=== PATIENT | female | born 1965 | race Caucasian/White ===

== ENCOUNTER → 2016-06-18 | Outpatient (CLI) | payer BC ==
[~2016-06-18] MED LIST: ALPR0.25 PO; CLON0.5T3 PO; FAMO20TA11 PO; IMD/2 PO; LACTASE PO; RANI1TAB75 PO
== END | disposition home or self-care (01) ==
LOC: C.PAPS 10:13
PROVIDERS: ATTEND Obstetrics & Gynecology
DX: Z01.419 Encounter for gynecological examination (general) (routine) without abnormal findings (principal); R87.610 Atypical squamous cells of undetermined significance on cytologic smear of cervix (ASC-US)

== ENCOUNTER → 2016-10-24 | Outpatient (CLI) | payer BC ==
--- NOTE | 2016-10-24 16:09 | MAMMOGRAPHY REPORT ---
BILATERAL DIGITAL SCREENING MAMMOGRAM TOMOSYNTHESIS WITH CAD: 10/24/2016 CLINICAL HISTORY: Routine screening. TECHNIQUE: Breast tomosynthesis in addition to standard 2D mammography was performed. Current study was also evaluated with a Computer Aided Detection (CAD) system. COMPARISON: Comparison is made to exams dated: 08/22/2015 mammogram, 08/16/2014 mammogram, 08/11/2012 m ammogram, 08/12/2013 mammogram, 08/07/2011 mammogram, and 01/23/2010 mammogram - [facility] enter. BREAST COMPOSITION: There are scattered areas of fibroglandular density in both breasts. FINDINGS: No suspicious masses, calcifications, or areas of architectural distortion are noted in ei ther breast. There has been no significant interval change compared to prior exams. Scattered bilater al benign-appearing calcifications are not significantly changed. Benign intramammary lymph nodes in bilateral upper outer quadrants are stable. IMPRESSION: ACR BI-RADS CATEGORY 2: BENIGN There is no mammographic evidence of malignancy. A 1 year screening mammogram is recommended. The pa tient will receive written notification of the results. Approximately 10% of breast cancers are not detected with mammography. A negative mammographic report should not delay biopsy if a clinically suggestive mass is present. Gloria Tijerina M.D. ah/:10/24/2016 13:40:46 Neon Tube Pumper: Davy STEVENS(Jose)(M), [facility] letter sent: Normal 1/2 BI-RADS Code: ACR BI-RADS Category 2: Benign
== END | disposition home or self-care (01) ==
LOC: C.MAMM 09:27
PROVIDERS: ATTEND Obstetrics & Gynecology
DX: Z12.31 Encounter for screening mammogram for malignant neoplasm of breast (principal)

== ENCOUNTER → 2016-11-14 | Outpatient (CLI) | payer BC ==
[2016-11-14 13:30] LABS: ALB/GLOB RATIO 1.3 (0.9-2); ALT/SGPT 19 U/L (12-78); AST/SGOT 13 U/L (15-37); BLOOD UREA NITROGEN 15 mg/dl (7-18); BUN/CREATININE RATIO 16.7 (10-20); CARBON DIOXIDE 26 mmol/L (21-32); CHLORIDE 107 mmol/L (98-107); CREATININE 0.92 mg/dl (0.60-1.20); GLUCOSE 95 mg/dl (70-99); POTASSIUM 4.1 mmol/L (3.5-5.1); SODIUM 141 mmol/L (136-145)
[2016-11-14 13:42] LABS: ALKALINE PHOSPHATASE 61 U/L (45-117); CHOLESTEROL 213 mg/dl (0-200); HDL CHOLESTEROL 43 mg/dl; LDL CHOLESTEROL CALCULATED 135 mg/dl; TRIGLYCERIDES 174 mg/dl (0-150); VERY LOW DENSITY LIPOPROT CALC 35 mg/dl
== END | disposition home or self-care (01) ==
LOC: C.LABPVFM 09:55
PROVIDERS: ATTEND Nurse Practitioner
DX: Z13.29 Encounter for screening for other suspected endocrine disorder (principal); Z13.220 Encounter for screening for lipoid disorders; R03.0 Elevated blood-pressure reading, without diagnosis of hypertension

== ENCOUNTER → 2016-12-18 | Day surgery (SDC) | payer BC ==
[2016-12-06 15:48] VITALS: Ht 147.3 cm; Wt 46.4 kg
[~2016-12-18] VITALS: Ht 147.3 cm; Wt 46.4 kg
[~2016-12-18] MED LIST changes: -IMD/2 PO; -LACTASE PO; +LIDOCAINE HCL 2% 2 ML VIAL (20MG/ML) ONE; +PROPOFOL IV EMULSION 10 MG/ML 20 ML VIAL IV ONE; -RANI1TAB75 PO; +SODIUM CHLORIDE 0.9% 500ML 500 ML IV ONE
--- NOTE | 2016-12-18 11:58 | Endo History and Physical ---
History & Physical Date of Service: Dec 18, 2016. Chief Complaint: Reflux Referring Physician: Purvi Suazo History of Present Illness 51 yo CF who presents for EGD secondary to GERD Past Surgical History Hx Cardiac Surgery: No Hx Internal Defibrillator: No Hx Pacemaker: No Hx Abdominal Surgery: Yes (APPY, JESSICA, , TUBAL LIGATION/REVERSAL) Hx of Implantable Prosthesis: No Hx Post-Op Nausea and Vomiting: Yes Hx Cancer Surgery: No Hx Thoracic Surgery: No Hx Orthopedic: Yes (LT CTR, RT HAND SURGERY X2) Hx Urinary Tract Surgery: No Family History None Social History Smoking Status: Never Smoker Hx Substance Use: No Hx Alcohol Use: No Allergies Coded Allergies: Formaldehyde (Verified Allergy, Intermediate, RESP DISTRESS,NAUSEA, ) CI Pigment Blue 63 (Verified Allergy, Unknown, GI UPSET, 12/06/16) Dexlansoprazole (Verified Allergy, Unknown, GI UPSET, 12/06/16) Pantoprazole (Verified Allergy, Unknown, STOMACH PAIN, 12/06/16) Rabeprazole (Verified Allergy, Unknown, GI UPSET, 12/06/16) Sorbitan (Verified Allergy, Unknown, GI UPSET, 12/06/16) Uncoded Allergies: DEMEROL (Adverse Reaction, Unknown, GI upset,nausea and vomiting., 03/24/11 ) Current Medications Reported Home Medications Medications Dose Route/Sig Max Daily Dose Days Date Category Pepcid (Famotidine) 20 Mg Tab 20 Mg PO BID 12/06/16 Reported Klonopin (Clonazepam) 0.5 Mg Tab 0.5-1 Tab PO HS PRN 12/07/15 Reported Xanax (Alprazolam) 0.25 Mg Tab 0.5 Tab PO DAILY PRN 12/07/15 Reported Vital Signs Weight (Kilograms): 46.36 Height (Feet): 4 Height (Inches): 10 Date Time Temp Pulse Resp B/P (MAP) Pulse Ox O2 Delivery O2 Flow Rate FiO2 12/18/16 11:27 36.6 95 20 154/105 (121) 100 Room Air Physical Exam General Appearance: WD/WN, no apparent distress Respiratory/Chest: Auscultation: breath sounds normal Cardiovascular: Heart Auscultation: RRR Abdomen: Bowel Sounds: normal Inspection & Palpation: soft, non-distended, no tenderness, guarding & rebound Assessment and Plan Assessment: 51 yo CF who presents for EGD secondary to GERD Plan: Proceed with EGD.
--- NOTE | 2016-12-18 12:16 | Discharge Instructions ---
Endoscopy Patient Instructions Date / Procedure(s) Performed Dec 18, 2016. EGD Allergy Information Coded Allergies: Formaldehyde (Verified Allergy, Intermediate, RESP DISTRESS,NAUSEA, ) CI Pigment Blue 63 (Verified Allergy, Unknown, GI UPSET, 12/06/16) Dexlansoprazole (Verified Allergy, Unknown, GI UPSET, 12/06/16) Pantoprazole (Verified Allergy, Unknown, STOMACH PAIN, 12/06/16) Rabeprazole (Verified Allergy, Unknown, GI UPSET, 12/06/16) Sorbitan (Verified Allergy, Unknown, GI UPSET, 12/06/16) Uncoded Allergies: DEMEROL (Adverse Reaction, Unknown, GI upset,nausea and vomiting., 03/24/11 ) Discharge Date / Findings Dec 18, 2016. Gastritis s/p biopsies Medication Instructions OK to resume all medications today as prescribed Reported Home Medications Medications Dose Route/Sig Max Daily Dose Days Date Category Pepcid (Famotidine) 20 Mg Tab 20 Mg PO BID 12/06/16 Reported Klonopin (Clonazepam) 0.5 Mg Tab 0.5-1 Tab PO HS PRN 12/07/15 Reported Xanax (Alprazolam) 0.25 Mg Tab 0.5 Tab PO DAILY PRN 12/07/15 Reported Provider Instructions Activity Restrictions - No exercising or heavy lifting for 24 hours. - Do not drink alcohol the day of the procedure. - Do not drive a car or operate machinery until the day after the procedure. - Do not make any important decisions or sign important papers in 24 hours after the procedure. Following Day: - Return to full activity which may include returning to work/school. Diet Start your diet with liquids and light foods (jello, soup, juice, toast). Then eat your usual diet if not nauseated. Treatment For Common After Affects For mild abdominal pain, bloating, or excessive gas: - Rest - Eat lightly - Lie on right side Follow-Up Information Follow-up with Purvi Suazo as scheduled Anesthesia Information What You Should Know You have had a procedure that required some medicine to reduce anxiety and discomfort. This treatment is called moderate sedation. After receiving the treatment, you may be sleepy, but you will be able to breathe on your own. The effects of the treatment may last for several hours. Follow these instructions along with Activity/Diet recommendations noted above: * Do NOT do anything where dizziness or clumsiness would be dangerous. * Rest quietly at home today, then you can be up and about tomorrow. * Have a responsible person stay with you the rest of today. * You may have had an I.V. today. If so, you may take the dressing off later today. Recommendations Call your doctor if: * Trouble breathing * Continuous vomiting for more than 24 hours * Temperature above 101 degrees * Severe abdominal pain or bloating * Pain not relieved by pain medicine ordered * There is increased drainage or redness from any incision * A large amount of rectal bleeding greater than 2-3 tablespoons. (If you had a polyp/s removed or have hemorrhoids, a small amount of blood - from the rectum is to be expected.) * You have any unanswered questions or concerns. IN THE EVENT OF A SERIOUS EMERGENCY, GO TO THE NEAREST EMERGENCY ROOM Your discharge instructions were prepared by provider Camron Ye. Patient Instructions Signature Page Santos Turpin Patient (or Guardian) Signature/Date: I have read and understand the instructions given to me by my caregivers. Caregiver/RN/Doctor Signature/Date: The above-named patient and/or guardian has received patient instructions on this date. + Original Patient Signature Page (only) stays with chart. Please make copy for patient.
--- NOTE | 2016-12-18 12:45 | Anesthesiology Progress Note ---
Anesthesia Post Op Note Date & Time Dec 18, 2016 at 12:45 Vital Signs Pain Intensity: 0 Vital Signs Past 12 Hours Date Time Temp Pulse Resp B/P (MAP) Pulse Ox O2 Delivery O2 Flow Rate FiO2 12/18/16 12:16 82 16 139/92 (108) 100 Room Air 12/18/16 11:27 36.6 95 20 154/105 (121) 100 Room Air Notes Mental Status: alert / awake / arousable, participated in evaluation Pt Amnestic to Procedure: Yes Nausea / Vomiting: adequately controlled Pain: adequately controlled Airway Patency, RR, SpO2: stable & adequate BP & HR: stable & adequate Hydration State: stable & adequate Anesthetic Complications: no major complications apparent
[2016-12-18 12:47] VITALS: BP 154/92; PULSE 82; O2SAT 99
--- NOTE | 2016-12-19 00:14 | GI REPORT ---
Procedure Date: 12/18/2016 12:09 PM Procedure: Upper GI endoscopy Indications: Follow-up of gastro-esophageal reflux disease Medicines: Monitored Anesthesia Care Complications: No immediate complications. Estimated Blood Loss: Estimated blood loss: none. Procedure: Pre-Anesthesia Assessment: - Prior to the procedure, a History and Physical was performed, and patient medications and allergies were reviewed. The patient's tolerance of previous anesthesia was also reviewed. The risks and benefits of the procedure and the sedation options and risks were discussed with the patient. All questions were answered, and informed consent was obtained. Prior Anticoagulants: The patient has taken no previous anticoagulant or antiplatelet agents. ASA Grade Assessment: II - A patient with mild systemic disease. After reviewing the risks and benefits, the patient was deemed in satisfactory condition to undergo the procedure. After obtaining informed consent, the endoscope was passed under direct vision. Throughout the procedure, the patient's blood pressure, pulse, and oxygen saturations were monitored continuously. The scope was introduced through the mouth, and advanced to the second part of duodenum. The upper GI endoscopy was accomplished without difficulty. The patient tolerated the procedure well. Findings: The esophagus was normal. Localized mild inflammation was found in the gastric antrum. Biopsies were taken with a cold forceps for histology. The examined duodenum was normal. Impression: - Normal esophagus. - Gastritis. Biopsied. - Normal examined duodenum. Recommendation: - Resume previous diet. - Continue present medications. - Await pathology results. - Return to primary care physician as previously scheduled. Camron Ye, 12/18/2016 12:18:41 PM This report has been signed electronically. Note Initiated On: 12/18/2016 12:09 PM I attest to the content of the Intraoperative Record and orders documented therein, exceptions below
== END | disposition home or self-care (01) ==
LOC: C.GI 10:58
PROVIDERS: ATTEND Internal Medicine
DX: K21.9 Gastro-esophageal reflux disease without esophagitis (principal); K29.70 Gastritis, unspecified, without bleeding

== ENCOUNTER → 2017-07-05 | Outpatient (CLI) | payer OTHER ==
[~2017-07-05] MED LIST changes: -LIDOCAINE HCL 2% 2 ML VIAL (20MG/ML) ONE; -PROPOFOL IV EMULSION 10 MG/ML 20 ML VIAL IV ONE; -SODIUM CHLORIDE 0.9% 500ML 500 ML IV ONE
[2017-07-05 13:49] LABS: BLOOD UREA NITROGEN 26 mg/dl (7-18); CALCIUM 8.9 mg/dl (8.5-10.1); CARBON DIOXIDE 25 mmol/L (21-32); CHOLESTEROL 188 mg/dl (0-200); CREATININE 0.82 mg/dl (0.60-1.20); GLUCOSE 95 mg/dl (70-99); POTASSIUM 4.1 mmol/L (3.5-5.1); SODIUM 137 mmol/L (136-145)
[2017-07-05 13:59] LABS: LDL CHOLESTEROL CALCULATED 131 mg/dl
== END | disposition home or self-care (01) ==
LOC: C.LABPVFM 08:38
PROVIDERS: ATTEND Nurse Practitioner
DX: Z13.220 Encounter for screening for lipoid disorders (principal); E04.2 Nontoxic multinodular goiter; R03.0 Elevated blood-pressure reading, without diagnosis of hypertension; R53.83 Other fatigue

== ENCOUNTER → 2017-07-08 | Outpatient (CLI) | payer OTHER ==
--- NOTE | 2017-07-08 11:22 | DIAGNOSTIC IMAGING REPORT ---
ULTRASOUND OF THE THYROID GLAND CLINICAL HISTORY: Nontoxic multinodular goiter. COMPARISON STUDY: No priors. TECHNIQUE: Real-time, grayscale, and color flow sonography of the thyroid gland is performed utilizing a high-frequency linear transducer. Images are reviewed in the transverse and longitudinal planes. FINDINGS: Right lobe: The right lobe of the thyroid gland is normal in size and markedly heterogeneous in echotexture, measuring 4.4 x 1.4 x 1.9 cm. The right lobe appears hyperemic on color imaging. No significant nodule is identified. Left lobe: The left lobe of the thyroid gland is normal in size and markedly heterogeneous in echotexture, measuring 4.7 x 1.6 x 1.8 cm. The left lobe appears hyperemic on color imaging. No significant nodule is identified. Isthmus: The thyroid isthmus is normal in appearance and measures 0.2 cm in AP diameter. IMPRESSION: 1. The thyroid gland is normal in size, markedly heterogeneous in echotexture, and hyperemic on color imaging. The appearance suggests thyroiditis. Correlation with thyroid function studies is recommended. 2. No significant nodule is identified. Subcentimeter nodules would be impossible to exclude. Electronically signed by: Marky Wilson M.D. 07/08/2017 11:21 AM Dictated Date/Time: 07/08/2017 11:19 AM
== END | disposition home or self-care (01) ==
LOC: C.ULTR 10:44
PROVIDERS: ATTEND Nurse Practitioner
DX: E04.2 Nontoxic multinodular goiter (principal); R53.83 Other fatigue